=== PATIENT | female | born 1985 ===

== ENCOUNTER 2017-02-18 14:58 | Emergency (ER) | payer MEDICAID ==
[2017-02-18 15:42] VITALS: BP 106/88; PULSE 66; RESP 18; TEMP 98.8; O2SAT 100
[2017-02-18] MEDS ORDERED: Oxycodone/Acetaminophen 5/325 mg Tab PO STA (16:31)
--- NOTE | 2017-02-18 16:32 | ED PDOC ---
Lower Extremity Pain/Injury Time Seen by Provider: 02/18/17 15:16 Chief Complaint (Nursing): Lower Extremity Problem/Injury Chief Complaint (Provider): Foot pain History Per: Patient Additional Complaint(s): 31 yo female, no PMH, presents to ED with complaints of pain and swelling to left great toe. Patient has broken and ingrown toe nail. Patient also has wound to left side of nail cause from using tools to remove part of nail. Past Medical History Reviewed: Nursing Documentation, Vital Signs Vital Signs: Last Vital Signs Temp 98.8 F 02/18/17 15:40 Pulse 66 02/18/17 15:40 Resp 18 02/18/17 15:40 BP 106/88 02/18/17 15:40 Pulse Ox 100 02/18/17 15:40 - Medical History PMH: No Chronic Diseases - Surgical History Surgical History: No Surg Hx - Family History Family History: States: No Known Family Hx - Living Arrangements Living Arrangements: With Family - Home Medications Home Medications: Ambulatory Orders Medication Instructions Recorded Clindamycin [Cleocin] 300 mg PO BID #14 cap 02/18/17 Ibuprofen [Motrin] 600 mg PO Q6 #20 tab 02/18/17 oxyCODONE/Acetaminophen [Percocet 1 ea PO Q6 PRN #5 tab 02/18/17 5/325 mg Tab] - Allergies Allergies/Adverse Reactions: Allergies Allergy/AdvReac Type Severity Reaction Status Date / Time Penicillins Allergy RASH Verified 02/18/17 15:39 Review of Systems ROS Statement: Except As Marked, All Systems Reviewed And Found Negative Skin: Positive for: Other (toe pain and swelling) Physical Exam - Reviewed Nursing Documentation Reviewed: Yes Vital Signs Reviewed: Yes - Physical Exam Appears: Positive for: Well, Non-toxic, No Acute Distress Head Exam: Positive for: ATRAUMATIC, NORMAL INSPECTION, NORMOCEPHALIC Skin: Positive for: Normal Color, Warm, DRY Eye Exam: Positive for: EOMI, Normal appearance, PERRL ENT: Positive for: Normal ENT Inspection Neck: Positive for: Normal, Painless ROM Cardiovascular/Chest: Positive for: Regular Rate, Rhythm Respiratory: Positive for: CNT, Normal Breath Sounds Gastrointestinal/Abdominal: Positive for: Normal Exam, Bowel Sounds, Soft Back: Positive for: Normal Inspection Extremity: Positive for: Normal ROM Neurologic/Psych: Positive for: Alert, Oriented Comments: left great toe: (+) erythema and scabbing noted to nail cutucle, no drainage or fluctuance - ECG O2 Sat by Pulse Oximetry: 100 Medical Decision Making Medical Decision Making: Advised warm soaks and antibiotics as directed follow up with podiatry clinic, return to ED with any concerns Disposition - Clinical Impression Clinical Impression: Paronychia of toe - Patient ED Disposition Is Patient to be Admitted: No - Disposition Disposition: Routine/Home Disposition Time: 17:00 Condition: GOOD Prescriptions: Clindamycin [Cleocin] 300 mg PO BID #14 cap Ibuprofen [Motrin] 600 mg PO Q6 #20 tab oxyCODONE/Acetaminophen [Percocet 5/325 mg Tab] 1 ea PO Q6 PRN #5 tab PRN Reason: Pain, Severe (8-10) Instructions: Paronychia (ED) Forms: [facility] ED School/Work Excuse
[2017-02-18] MEDS ORDERED: Oxycodone/Acetaminophen 5/325 mg Tab ONE (17:01)
== END 2017-02-18 18:03 | disposition home or self-care (01) ==
LOC: H.ER 14:58
DX: L03.039 Cellulitis of unspecified toe (principal)